=== PATIENT | female | born 1930 | race Caucasian/White ===

== ENCOUNTER 2017-05-30 16:29 | Emergency (ER) | payer OTHER, MEDICARE ==
[~2017-05-30] VITALS: Ht 160 cm; Wt 60.0 kg
[~2017-05-30 16:29] MED LIST: BAYER ASPIRIN325 MG PO; TRIAMTERENE-HC1 EAC3 PO
[2017-05-30 17:47] LABS: HEMATOCRIT 32.9 % (36.0-46.0); HEMOGLOBIN 11.3 G/DL (11.9-15.5); MCH 28.9 PG (29.0-34.0); MCHC 34.3 G/DL (30.0-36.0); MCV 84.1 FL (83-99); PLATELET COUNT 169 K/uL (156-360); RBC DIS.WIDTH-SD 39.3 % (39-53); RED BLOOD COUNT 3.91 M/uL (3.80-5.20); WHITE BLOOD COUNT 10.8 K/uL (4.1-10.2)
[2017-05-30 17:55] LABS: CHLORIDE 96 mEq/L (99-109); POTASSIUM 3.6 mEq/L (3.7-5.4); SODIUM 133 mEq/L (136-147)
[2017-05-30 17:57] LABS: GLUCOSE 122 mg/dL (70-99)
[2017-05-30 17:58] LABS: TOTAL PROTEIN 6.7 g/dL (6.4-8.3)
[2017-05-30 17:59] LABS: TOTAL BILIRUBIN 0.5 mg/dL (0.0-1.0)
[2017-05-30 18:01] LABS: ALKALINE PHOSPHATASE 84 IU/L (3-129); CREATININE 0.9 mg/dL (0.6-1.3); GFR ESTIMATE (CALCULATED) > 59 mL/min/
[2017-05-30 18:02] LABS: UREA NITROGEN (BUN) 17 mg/dL (9-23)
[2017-05-30 18:03] LABS: AST (GOT) 25 IU/L (2-34)
[2017-05-30 18:04] LABS: ALT (GPT) 17 IU/L (3-49)
[2017-05-30 18:10] LABS: TROP-I INTERPRETATION NEGATIVE; TROPONIN-I < 0.01 ng/mL (0.0-0.30)
[2017-05-30 19:05] LABS: APPEARANCE CLEAR ((CLEAR)); BILIRUBIN NEGATIVE; BLOOD NEGATIVE; COLOR YELLOW ((YELLOW)); GLUCOSE (STRIP) NEGATIVE; KETONES NEGATIVE; LEUKOCYTES TRACE; NITRITE NEGATIVE; PROTEIN (STRIP) 30; SPECIFIC GRAVITY 1.016 (1.000-1.030); UROBILINOGEN 0.2 MG/DL (0.2-1.0)
[2017-05-30 19:08] LABS: BACTERIA RARE /HPF; EPITHELIAL CELLS RARE /HPF; MUCUS NONE SEEN /LPF; RED BLOOD CELLS 0-5 /HPF (0-5)
[2017-05-30 20:35] VITALS: BP 142/783
== END 2017-05-30 20:40 | disposition home or self-care (01) ==
LOC: EME 16:29
PROVIDERS: Emergency Medicine
DX: R42 Dizziness and giddiness (principal); R51 Headache; W10.9XXA Fall (on) (from) unspecified stairs and steps, initial encounter; E87.1 Hypo-osmolality and hyponatremia; E87.6 Hypokalemia; R11.0 Nausea; R91.8 Other nonspecific abnormal finding of lung field; I10 Essential (primary) hypertension; H54.8 Legal blindness, as defined in USA; Z86.73 Personal history of transient ischemic attack (TIA), and cerebral infarction without residual deficits; Z79.82 Long term (current) use of aspirin
CPT/HCPCS: 70450; 71045; 80053; 81003; 82948; 84484; 85027; 93005; 99281; 99285; J2405